=== PATIENT | male | born 1955 | race Caucasian/White ===

== ENCOUNTER 2020-07-08 17:03 | Outpatient (CLI) | payer MEDICARE | END 2020-07-08 17:04 | disposition short-term general hospital (02) | LOC: EMS 17:03 | PROVIDERS: ATTEND Surgery | DX: S59.902A Unspecified injury of left elbow, initial encounter (principal); W11.XXXA Fall on and from ladder, initial encounter | CPT/HCPCS: A0425; A0427; A0888 ==